=== PATIENT | female | born 1965 | race Caucasian/White ===

== ENCOUNTER 2023-08-13 07:23 | Emergency (ER) | payer MEDICAID, OTHER ==
[~2023-08-13] VITALS: Ht 157.5 cm; Wt 70.5 kg
[~2023-08-13 07:23] MED LIST: ASPI-556 PO; GLIP10TA10 PO; INSLAN SQ; INSNOV SQ; LISI10TA24 PO; METF1000 PO
[2023-08-13 07:33] VITALS: TEMP 98.4
[2023-08-13] MEDS ORDERED: EMPA10TA3 PO (07:35)
[2023-08-13] MEDS ORDERED: ATOR40TA71 PO (07:35)
[2023-08-13] MEDS ORDERED: KETOROLAC TROMETHAMINE 60 MG/2 ML VIAL IM ONE (10:00)
[2023-08-13 10:47] VITALS: BP 135/82; PULSE 85; RESP 16
== END 2023-08-13 10:47 | disposition home or self-care (01) ==
LOC: EMS 07:25
DX: R51.9 Headache, unspecified (principal); E11.9 Type 2 diabetes mellitus without complications; E78.00 Pure hypercholesterolemia, unspecified; I10 Essential (primary) hypertension
CPT/HCPCS: 99285; 70450; 82962; 96372; J1885

== ENCOUNTER 2023-10-21 15:46 | Emergency (ER) | payer OTHER ==
[~2023-10-21] VITALS: Ht 162.6 cm; Wt 90.9 kg
[~2023-10-21 15:46] MED LIST changes: +ATOR40TA71 PO; +EMPA10TA3 PO; -GLIP10TA10 PO
[2023-10-21 15:58] VITALS: BP 119/38; PULSE 85; RESP 16; TEMP 98.2
[2023-10-21] MEDS ORDERED: LORA10TA7 PO (16:02)
[2023-10-21] MEDS ORDERED: LISI5TAB21 PO (16:02)
[2023-10-21] MEDS ORDERED: TraMADol HCL 50 MG TABLET PO ONE (17:00)
[2023-10-21] MEDS ORDERED: METF-446 PO (17:03)
[2023-10-21] MEDS ORDERED: FLUT16SP NASAL (17:03)
[2023-10-21] MEDS ORDERED: ACYC-138 PO (17:06)
[2023-10-21] MEDS ORDERED: LIDO700A15 TP (17:07)
[2023-10-21] MEDS ORDERED: ALBU18HF12 IH (17:09)
[2023-10-21] MEDS ORDERED: SEMA0.258 SQ (17:09)
== END 2023-10-21 17:23 | disposition home or self-care (01) ==
LOC: EMS 15:47
DX: B02.9 Zoster without complications (principal); E11.9 Type 2 diabetes mellitus without complications; E78.00 Pure hypercholesterolemia, unspecified; I10 Essential (primary) hypertension; Z98.890 Other specified postprocedural states
CPT/HCPCS: 99283